=== PATIENT | female | born 1975 | race Caucasian/White ===

== ENCOUNTER 2018-03-05 06:26 | Day surgery (SDC) | payer MEDICAID ==
[~2018-03-05 06:26] MED LIST: CEFAZOLIN 2 GM/50 ML (PMX) 50 ML IVPB; SOD CHLORIDE 0.9% 1,000 ML IV
[2018-03-05 08:20] LABS: ADD MAN DIFF? NO
[2018-03-05 08:29] LABS: BASOPHIL # 0.1 10^3/ul (0.0-0.1); BASOPHILS % 0.7 % (0.0-2.0); EOSINOPHILS # 0.1 10^3/ul (0.0-0.5); EOSINOPHILS % 1.5 % (0.0-7.0); HEMATOCRIT 37.1 % (37.0-47.0); HEMOGLOBIN 12.5 g/dl (12.0-16.0); LYMPHOCYTES # 2.3 10^3/ul (0.8-2.9); LYMPHOCYTES % 28.9 % (15.0-51.0); MEAN CORPUSCULAR HEMOGLOBIN 31.5 pg (29.0-33.0); MEAN CORPUSCULAR HGB CONC 33.7 g/dl (32.0-37.0); MEAN CORPUSCULAR VOLUME 93.5 fl (82.0-101.0); MEAN PLATELET VOLUME 9.6 fl (7.4-10.4); MONOCYTE # 0.5 10^3/ul (0.3-0.9); NEUTROPHILS % 62.5 % (39.0-77.0); PLATELET COUNT 298 10^3/UL (140-415); RED BLOOD COUNT 3.97 10^6/ul (4.20-5.40); RED CELL DISTRIBUTION WIDTH 12.5 % (11.5-14.5)
[2018-03-05] MEDS ORDERED: FENTAnyl 50 MCG/ML VIAL (10:09)
[2018-03-05] MEDS ORDERED: MIDAZOLAM 1 MG/ML 2 ML INJ (10:09)
[2018-03-05] MEDS ORDERED: CEFAZOLIN 1 GM INJ (10:17)
[2018-03-05] MEDS ORDERED: ONDANSETRON 4 MG INJ (10:47)
[2018-03-05] MEDS ORDERED: LIDOCAINE 2% (SDV) 5 ML INJ (10:47)
[2018-03-05] MEDS ORDERED: PROPOFOL 20 ML (10:47)
[2018-03-05] MEDS ORDERED: HYDROCODONE/APAP (7.5/325) TAB PO (11:00)
[2018-03-05] MEDS ORDERED: ONDANSETRON 4 MG INJ IV (11:00)
[2018-03-05] MEDS ORDERED: HYDROmorphONE 1 MG/5 ML IV SYRINGE IV (11:00)
[2018-03-05] MEDS ORDERED: DIPHENHYDRAMINE 50 MG INJ IV (11:00)
[2018-03-05] MEDS: MEPERIDINE 25 MG INJ IV (11:40)
[2018-03-05] MEDS: HYDROmorphONE 1 MG/5 ML IV SYRINGE IV (11:40)
[2018-03-05] MEDS: FENTAnyl 50 MCG/ML VIAL IV (11:41)
== END 2018-03-05 12:31 | disposition home or self-care (01) ==
LOC: SDS 06:26
DX: D24.1 Benign neoplasm of right breast (principal); E66.9 Obesity, unspecified; Z68.30 Body mass index [BMI] 30.0-30.9, adult
CPT/HCPCS: 19120; 85025; 88307